=== PATIENT | female | born 2000 | race Caucasian/White ===

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

== ENCOUNTER 2021-11-22 11:23 | Emergency (ER) | payer MEDICAID, OTHER ==
[~2021-11-22] VITALS: Ht 162.6 cm; Wt 50.0 kg
[~2021-11-22 11:23] MED LIST: CYCL-1 PO
[2021-11-22 11:45] VITALS: BP 121/66
[2021-11-22] MEDS ORDERED: dexamethasone sod phosphate 10mg/ml inj IM STA (12:24)
[2021-11-22] MEDS ORDERED: AMOX-422 PO (12:26)
[2021-11-22] MEDS ORDERED: PRED20TA PO (12:26)
== END 2021-11-22 12:43 | disposition home or self-care (01) ==
LOC: ER 11:24
DX: J02.0 Streptococcal pharyngitis (principal); Z20.822 Contact with and (suspected) exposure to COVID-19; Z79.2 Long term (current) use of antibiotics; Z79.899 Other long term (current) drug therapy
CPT/HCPCS: 87635; 87880; 96372; 99283; C9803; J1100

== ENCOUNTER 2023-03-05 08:42 | Emergency (ER) | payer OTHER ==
[~2023-03-05] VITALS: Ht 162.6 cm; Wt 54.0 kg
[2023-03-05] MEDS ORDERED: rabies immune globulin/PF 150 unit/ml inj IMVAC ONE (09:15)
[2023-03-05] MEDS ORDERED: rabies vaccine (PCEC)/PF 2.5 unit kit IMVAC ONE (09:15)
[2023-03-05] MEDS ORDERED: amox tr/potassium clavulanate 500mg/125mg TAB PO ONE (09:25)
[2023-03-05] MEDS ORDERED: AMOX-115 PO (09:52)
[2023-03-05 10:32] VITALS: BP 111/69
== END 2023-03-05 10:33 | disposition home or self-care (01) ==
LOC: ER 08:42
DX: S61.234A Puncture wound without foreign body of right ring finger without damage to nail, initial encounter (principal); Z79.899 Other long term (current) drug therapy; W64.XXXA Exposure to other animate mechanical forces, initial encounter; Y93.89 Activity, other specified; Y92.89 Other specified places as the place of occurrence of the external cause; Y99.8 Other external cause status
CPT/HCPCS: 90376; 90471; 90472; 90675; 96372; 99284

== ENCOUNTER 2023-03-13 07:33 | Emergency (ER) | payer OTHER ==
[~2023-03-13] VITALS: Ht 162.6 cm; Wt 52.6 kg
[2023-03-13 07:39] VITALS: BP 137/77
[2023-03-13] MEDS ORDERED: rabies vaccine (PCEC)/PF 2.5 unit kit IMVAC ONE (07:50)
== END 2023-03-13 08:13 | disposition home or self-care (01) ==
LOC: ER 07:34
DX: S61.432D Puncture wound without foreign body of left hand, subsequent encounter (principal); Z23 Encounter for immunization; W64.XXXD Exposure to other animate mechanical forces, subsequent encounter
CPT/HCPCS: 90471; 90675; 99281